=== PATIENT | female | born 1960 | race Caucasian/White ===

== ENCOUNTER → 2017-01-23 | Outpatient (CLI) | payer BC ==
--- NOTE | 2017-01-24 10:37 | MM ---
Reason for exam: screening (asymptomatic). Last mammogram was performed 1 year and 1 month ago. History: Patient is postmenopausal. Took estrogen for 2 years beginning at age 44. Physical Findings: A clinical breast exam by your physician is recommended on an annual basis and results should be correlated with mammographic findings. MG Screening Mammo w CAD Bilateral CC and MLO view(s) were taken. Prior study comparison: December 14, 2015, bilateral MG screening mammo w CAD. March 03, 2014, bilateral MG screening mammo w CAD. There are scattered fibroglandular densities. No significant changes when compared with prior studies. ASSESSMENT: Negative, BI-RAD 1 RECOMMENDATION: Routine screening mammogram of both breasts in 1 year.
== END | disposition home or self-care (01) ==
LOC: RADMAMWWP 13:54
PROVIDERS: ATTEND Family Medicine
DX: Z12.31 Encounter for screening mammogram for malignant neoplasm of breast (principal)

== ENCOUNTER → 2017-04-18 | Outpatient (CLI) | payer BC ==
--- NOTE | 2017-04-18 13:30 | US ---
EXAMINATION TYPE: US thyroid st tissue head/neck DATE OF EXAM: 04/18/2017 COMPARISON: NONE CLINICAL HISTORY: I88.9 Nonspecific lymphadenitis, unspecified. GLAND SIZE: Right Lobe: 5.2 x 1.5 x 1.6 cm Overall Parenchyma: heterogenous Left Lobe: 4.3 x 1.2 x 1.6 cm Overall Parenchyma: heterogeneous Isthmus Thickness: 0.2 cm NODULES RIGHT: # of nodules measured on right: 1 1. 1.0 X 0.6 x 0.9 cm isoechoic solid nodule at the mid pole with poorly defined margins; . This n odule is wider than tall and shows no intranodular vascularity. Prior size: no prior LEFT: # of nodules measured on left: 1 1. 0.7 X 0.4 x 1.1 cm isoechoic nodule at the lower pole with poorly defined margins; . This nodu le is wider than tall and shows no intranodular vascularity. Prior size: no prior ISTHMUS: # of nodules measured in the isthmus: 0 Bilateral neck scanned, no evidence of lymphadenopathy. Rt neck swelling off and on, no mass seen IMPRESSION: Nonspecific thyroid nodules as discussed.
== END | disposition home or self-care (01) ==
LOC: RADUSWWP 12:54
PROVIDERS: ATTEND Family Medicine
DX: E04.2 Nontoxic multinodular goiter (principal)
CPT/HCPCS: 76536

== ENCOUNTER → 2018-04-25 | Outpatient (CLI) | payer BC ==
--- NOTE | 2018-05-01 11:38 | MM ---
Reason for exam: screening (asymptomatic). Last mammogram was performed 1 year and 3 months ago. History: Patient is postmenopausal. Took estrogen for 2 years beginning at age 44. Physical Findings: A clinical breast exam by your physician is recommended on an annual basis and results should be correlated with mammographic findings. MG 3D Screening Mammo W/Cad Bilateral CC and MLO view(s) were taken. Prior study comparison: January 23, 2017, bilateral MG screening mammo w CAD. December 14, 2015, bilateral MG screening mammo w CAD. There are scattered fibroglandular densities. No significant changes when compared with prior studies. ASSESSMENT: Negative, BI-RAD 1 RECOMMENDATION: Routine screening mammogram of both breasts in 1 year.
== END | disposition home or self-care (01) ==
LOC: RADMAMWWP 14:23
PROVIDERS: ATTEND Family Medicine
DX: Z12.31 Encounter for screening mammogram for malignant neoplasm of breast (principal)
CPT/HCPCS: 77063; 77067

== ENCOUNTER → 2019-05-04 | Outpatient (CLI) | payer BC ==
--- NOTE | 2019-05-06 10:17 | MM ---
Reason for exam: screening (asymptomatic). Last mammogram was performed 1 year ago. History: Patient is postmenopausal. Took estrogen for 2 years beginning at age 44. Physical Findings: A clinical breast exam by your physician is recommended on an annual basis and results should be correlated with mammographic findings. MG 3D Screening Mammo W/Cad Bilateral CC and MLO view(s) were taken. Prior study comparison: April 25, 2018, bilateral MG 3d screening mammo w/cad. January 23, 2017, bilateral MG screening mammo w CAD. There are scattered fibroglandular densities. No significant changes when compared with prior studies. ASSESSMENT: Benign, BI-RAD 2 RECOMMENDATION: Routine screening mammogram of both breasts in 1 year.
== END | disposition home or self-care (01) ==
LOC: RADMAMWWP 14:34
PROVIDERS: ATTEND Family Medicine
DX: Z12.39 Encounter for other screening for malignant neoplasm of breast (principal)
CPT/HCPCS: 77063; 77067

== ENCOUNTER → 2020-04-14 | Outpatient (CLI) | payer BC ==
--- NOTE | 2020-04-14 10:34 | CT ---
EXAMINATION TYPE: CT abdomen pelvis wo con DATE OF EXAM: 04/14/2020 COMPARISON: HISTORY: flank pain, microscopic hematuria, history of renal stones CT DLP: 1101 mGycm Automated exposure control for dose reduction was used. TECHNIQUE: Helical acquisition of images was performed from the lung bases through the pelvis. FINDINGS: LUNG BASES: No significant abnormality is appreciated. LIVER/GB: Tiny hypodensity involving the dome of the liver too small to characterize and measures les s than 1 cm.. PANCREAS: No significant abnormality is seen. SPLEEN: No significant abnormality is seen. ADRENALS: No significant abnormality is seen. KIDNEYS: No significant abnormality is seen. ADENOPATHY: None visualized. OSSEOUS STRUCTURES: Hypertrophic and degenerative change of the spine.. BOWEL: No significant abnormality is seen. OTHER: Aorta of normal caliber. IMPRESSION: 1. No evidence of renal calculus or hydronephrosis.
== END | disposition home or self-care (01) ==
LOC: RADCTMAIN 09:42
PROVIDERS: ATTEND Family Medicine
DX: R10.9 Unspecified abdominal pain (principal)
CPT/HCPCS: 74176

== ENCOUNTER → 2020-06-24 | Outpatient (CLI) | payer BC ==
--- NOTE | 2020-06-28 08:43 | MM ---
Reason for exam: screening (asymptomatic). Last mammogram was performed 1 year and 2 months ago. History: Took estrogen for 2 years beginning at age 44. Physical Findings: A clinical breast exam by your physician is recommended on an annual basis and results should be correlated with mammographic findings. MG 3D Screening Mammo W/Cad Bilateral CC and MLO view(s) were taken. Prior study comparison: May 04, 2019, bilateral MG 3d screening mammo w/cad. April 25, 2018, bilateral MG 3d screening mammo w/cad. There are scattered fibroglandular densities. No significant changes when compared with prior studies. ASSESSMENT: Negative, BI-RAD 1 RECOMMENDATION: Routine screening mammogram of both breasts in 1 year.
== END ==
LOC: RADMAMWWP 11:56
PROVIDERS: ATTEND Family Medicine
DX: Z12.31 Encounter for screening mammogram for malignant neoplasm of breast (principal)
CPT/HCPCS: 77063; 77067

== ENCOUNTER → 2020-12-27 | Outpatient (CLI) | payer BC ==
--- NOTE | 2020-12-27 17:59 | XR ---
Cervical spine HISTORY: M 47.22 6 views of the cervical spine, no comparisons There is multilevel spondylosis. Loss of disc height is present greatest at C4-5, C5-6 and C6-7. Ther e is near anatomic alignment. Cervical vertebral bodies show preserved height and alignment. There is multilevel foraminal encroachment on oblique views to exclude C3-4, C4-5, C5-6 and C6-7 bilaterally. Facet arthropathy changes are present. IMPRESSION: Degenerative disc disease, facet arthropathy, multilevel foraminal encroachment.
== END | disposition home or self-care (01) ==
LOC: RADXRMAIN 16:57
PROVIDERS: ATTEND Family Medicine
DX: M47.22 Other spondylosis with radiculopathy, cervical region (principal); M50.30 Other cervical disc degeneration, unspecified cervical region
CPT/HCPCS: 72050

== ENCOUNTER → 2021-01-22 | Outpatient (CLI) | payer BC ==
--- NOTE | 2021-01-22 13:41 | MR ---
EXAMINATION TYPE: MR cervical spine wo con DATE OF EXAM: 01/22/2021 COMPARISON: None HISTORY: Chronic neck pain and stiffness. TECHNIQUE: Multiplanar, multisequence images of the cervical spine were acquired without contrast. Findings: Exam is limited due to the patient's body habitus. The craniovertebral junction relationships and prevertebral soft tissues are normal. The cervical vertebral segments are normal in height and alignment and there is no fracture or sublux ation. There is moderate degenerative disease at the C4-5, C5-6 and C6-7 levels where there is moderate disc space narrowing, posterior disc bulge and spondylosis. There is no cervical disc herniation. Secondary to posterior spondylosis, there is mild spinal stenosis at the C3-4-5 level, moderate spina l stenosis at the C5-6 level and moderate to severe spinal stenosis at the C6-7 level. There is multilevel neural foraminal encroachment as follows; severe at the C3-4 level on the right s evere at the C5-6 level bilaterally and mild at the C6-7 level bilaterally. The cervical cord is normal in size and signal intensity. The paraspinal soft tissues are unremarkabl e. IMPRESSION: 1. Moderate degenerative disc the C4-5, C5-6 and C6-7 levels. 2. Multilevel cervical stenosis as described above. 3. No cervical disc herniation. 4. Multilevel neural foraminal stenosis as described above.
== END | disposition home or self-care (01) ==
LOC: RADMRIMAIN 12:58
PROVIDERS: ATTEND Family Medicine
DX: M47.22 Other spondylosis with radiculopathy, cervical region (principal); M50.30 Other cervical disc degeneration, unspecified cervical region; M48.02 Spinal stenosis, cervical region
CPT/HCPCS: 72141

== ENCOUNTER → 2021-08-21 | Outpatient (CLI) | payer BC ==
--- NOTE | 2021-08-24 11:58 | MM ---
Reason for exam: screening (asymptomatic). Last mammogram was performed 1 year and 2 months ago. History: Took estrogen for 2 years beginning at age 44. Physical Findings: A clinical breast exam by your physician is recommended on an annual basis and results should be correlated with mammographic findings. MG 3D Screening Mammo W/Cad Bilateral CC and MLO view(s) were taken. Prior study comparison: June 24, 2020, bilateral MG 3d screening mammo w/cad. May 04, 2019, bilateral MG 3d screening mammo w/cad. There are scattered fibroglandular densities. There is chronic nodularity in the right breast, stable. There is no discrete abnormality. ASSESSMENT: Negative, BI-RAD 1 RECOMMENDATION: Routine screening mammogram of both breasts in 1 year.
== END | disposition home or self-care (01) ==
LOC: RADMAMWWP 16:09
PROVIDERS: ATTEND Family Medicine
DX: Z12.31 Encounter for screening mammogram for malignant neoplasm of breast (principal)
CPT/HCPCS: 77063; 77067

== ENCOUNTER → 2022-04-07 | Outpatient (CLI) | payer BC ==
[2022-04-07 11:33] LABS: Basophils # (A) 0.06 X 10*3/uL (0.00-0.10); Basophils % (A) 0.7 %; Eosinophils # (A) 0.22 X 10*3/uL (0.04-0.35); Eosinophils % (A) 2.6 %; HCT 43.5 % (37.2-46.3); HGB 14.2 g/dL (12.0-15.0); Immature Grans, Automated 0.4 %; Lymphocytes # (A) 2.06 X 10*3/uL (0.90-5.00); Lymphocytes % (A) 24.6 %; MCH 30.7 pg (27.0-32.0); MCHC 32.6 g/dL (32.0-37.0); Mean Platelet Volume 10.4 fL (9.5-12.2); Monocytes # (A) 0.65 X 10*3/uL (0.20-1.00); Monocytes % (A) 7.8 %; NRBC Per 100 WBC 0 /100 WBCS (0.0-0.0); Neutrophils # (A) 5.35 X 10*3/uL (1.80-7.70); Neutrophils % (A) 63.9 %; Platelet Count 181 X 10*3/uL (140-440); RBC 4.63 X 10*6/uL (4.10-5.20); RDW 12.6 % (11.5-14.5); WBC 8.37 X 10*3/uL (4.50-10.00)
[2022-04-07 12:19] LABS: ALT 11 U/L (8-44); AST 14 U/L (13-35); African American GFR (CKD) 79.1 (60.0-200.0); Albumin 4.3 g/dL (3.8-4.9); Albumin/Globulin Ratio 1.99 (1.60-3.17); Alkaline Phosphatase 65 U/L (41-126); Blood Urea Nitrogen 22.7 mg/dL (9.0-27.0); Calcium 9.2 mg/dL (8.7-10.3); Carbon Dioxide 27.4 mmol/L (20.0-27.5); Chloride 105 mmol/L (96-109); Chol/HDL Ratio 2.95 Ratio; Globulin 2.1 g/dL (1.6-3.3); Glucose 110 mg/dL (70-110); LDL Cholesterol,Calculated 69.8 mg/dL (0.0-131.0); Non-African American GFR(CKD) 68.2 (60.0-200.0); Sodium 145 mmol/L (135-145); Total Protein 6.4 g/dL (6.2-8.2)
== END | disposition home or self-care (01) ==
LOC: LABWHC1 08:07
PROVIDERS: ATTEND Family Medicine
DX: E78.2 Mixed hyperlipidemia (principal); E55.9 Vitamin D deficiency, unspecified
CPT/HCPCS: 36415; 80053; 80061; 82306; 84443; 85025

== ENCOUNTER → 2022-09-14 | Outpatient (CLI) | payer BC ==
--- NOTE | 2022-09-17 19:08 | MM ---
Reason for Exam: Screening (asymptomatic). Last mammogram was performed 1 year(s) and 1 month(s) ago. Patient History: Menarche at age 13. First Full-Term at age 26. Left ovary removed at age 44. Right ovary removed at age 34. Hysterectomy at age 34. Estrogen for 2 years from age 44 until age 46. Risk Values: Ivania 5 year model risk: 1.4%. NCI Lifetime model risk: 7.2%. Prior Study Comparison: 05/04/2019 Bilateral Screening Mammogram, [facility]. 06/24/2020 Bilateral Screening Mammogram, [facility]. 08/21/2021 Bilateral Screening Mammogram, [facility]. Tissue Density: There are scattered fibroglandular densities. Findings: Analyzed By CAD. There is no suspicious group of microcalcifications or new suspicious mass in either breast. Overall Assessment: Negative, BI-RAD 1 Management: Screening Mammogram of both breasts in 1 year. . Patient should continue monthly self-breast exams. A clinical breast exam by your physician is recommended on an annual basis. This exam should not preclude additional follow-up of suspicious palpable abnormalities. Note on Ivania scores and lifetime risk: 1. A Ivania score greater than 3% is considered moderate risk. If this is the case, consider specialist referral to assess eligibility for a risk reducing agent. 2. If overall lifetime risk for the development of breast cancer is 20% or higher, the patient may qualify for future screening with alternating mammogram and breast MRI. Electronically signed and approved by: Matias Davis M.D. Radiologist
== END | disposition home or self-care (01) ==
LOC: RADMAMWWP 14:49
PROVIDERS: ATTEND Family Medicine
DX: Z12.31 Encounter for screening mammogram for malignant neoplasm of breast (principal)
CPT/HCPCS: 77063; 77067

== ENCOUNTER → 2023-08-16 | Outpatient (CLI) | payer BC ==
--- NOTE | 2023-08-16 13:22 | CT ---
EXAMINATION TYPE: CT abdomen wo con DATE OF EXAM: 08/16/2023 COMPARISON: 04/14/2020 HISTORY: 8-year-old female R1 0.9, flank pain TECHNIQUE: Contiguous axial scanning of the abdomen without IV contrast. Coronal and sagittal reconst ructions performed. CT DLP: 680 mGycm Automated exposure control for dose reduction was used. FINDINGS: Heart normal size without pericardial effusion. Lung bases clear without pleural effusion. Liver enlarged at 19.0 cm. Otherwise, noncontrast appearance of the liver, gallbladder, adrenal gland s, left kidney, spleen, and atrophic pancreas show no gross abnormality. Redemonstrated 1.7 cm cortical cyst anterior right kidney. No hydronephrosis seen on either side. Scattered prominent mesenteric lymph nodes measuring up to 1 cm suggesting chronic reactive/post infl ammatory etiology. Some prominent fluid-filled small bowel loops in the mid and left side of the abdomen. No dilated sma ll bowel, free fluid, or free air. Mild to moderate scattered stool. No pericolic inflammatory change. The pelvis is not imaged. Bones: Moderate degenerative disc disease and endplate spondylosis throughout along with scattered hy pertrophic facet arthropathy. IMPRESSION: 1. HEPATOMEGALY AT 19.0 CM. 2. NO NEPHROLITHIASIS OR HYDRONEPHROSIS. 3. SOME PROMINENT FLUID-FILLED SMALL BOWEL LOOPS IN THE MID AND LEFT SIDE OF THE ABDOMEN MAY BE TRANS IENT OR COULD REPRESENT A MILD ENTERITIS.
== END | disposition home or self-care (01) ==
LOC: RADCTMAIN 12:46
PROVIDERS: ATTEND Family Medicine
DX: K31.89 Other diseases of stomach and duodenum (principal); R16.0 Hepatomegaly, not elsewhere classified
CPT/HCPCS: 74150

== ENCOUNTER → 2023-09-25 | Outpatient (CLI) | payer BC ==
--- NOTE | 2023-09-26 12:59 | BD ---
EXAMINATION TYPE: Axial Bone Density DATE OF EXAM: 09/25/2023 CLINICAL HISTORY: 63 years old Female. ICD-10 CODE: Z78.0 ASYMPOTMATIC MENOPAUSAL STATE Height: 5 ft 1 1/4 in Weight: 229 FRAX RISK QUESTIONS: Alcohol (3 or more units per day): no Family History (Parent hip fracture): no Glucocorticoids (More than 3mos): no (Ex: prednisone, prednisolone, methylprednisolone, dexamethasone, and hydrocortisone). History of Fracture in Adulthood: yes Secondary Osteoporosis: 1. Type 1 Diabetes: no 2. Hyperthyroidism: no 3. Menopause before 45: yes 4. Malnutrition: no 5. Chronic liver disease: no Rheumatoid Arthritis: no Current Tobacco Use: no RISK FACTORS HISTORY OF: Surgery to Spine/Hip(right/left)/Wrist (right/left): arlen carpal tunnel/ c spine surg When: wrist 90's/ cspine 2021 MEDICATIONS: Thyroid Medications: none Osteoporosis Medications: none EXAM MEASUREMENTS: Bone mineral densitometry was performed using the [employer] System. Bone mineral density as measured about the Lumbar spine is: ----- L1-L4(G/cm2): 1.389 T Score Values are as follows: ----- L1: 1.1 ----- L2: 1.9 ----- L3: 2.5 ----- L4: 1.4 ----- L1-L4: 1.7 Z Score Values are as follows: ----- L1: 1.3 ----- L2: 2.0 ----- L3: 2.6 ----- L4: 1.5 ----- L1-L4: 1.9 Bone mineral density has: decreased -4.2 % since study of: 2005 Bone mineral density about the R hip (g/cm2): 0.920 Bone mineral density about the L hip (g/cm2): 1.039 T Score values are as follows: -----R Neck: -0.8 -----L Neck: 0.0 -----R Total: 0.3 -----L Total: 0.9 Z Score values are as follows: -----R Neck: -0.3 -----L Neck: 0.5 -----R Total: 0.5 -----L Total: 1.0 Bone mineral density has: decreased -10.4 % since study of: 2005 FRAX%s: The graph provided illustrates a 6.2 % chance for a major osteoporotic fx and a 0.3 % chance for the hips probability for fx in 10 years time. IMPRESSION: Normal (Values between +1 and -1 indicate normal bone mass). Consider repeating this study in 5 year s or sooner if there is some new clinical indication. NOTE: T-SCORE=SD OF THE YOUNG ADULT MEAN.
--- NOTE | 2023-09-26 20:08 | MM ---
Reason for Exam: Screening (asymptomatic). Last screening mammogram was performed 12 month(s) ago. Patient History: Menarche at age 13. First Full-Term at age 26. Left ovary removed at age 44. Right ovary removed at age 34. Hysterectomy at age 34. Patient has history of breast feeding. Estrogen for 2 years from age 44 until age 46. Risk Values: Ivania 5 year model risk: 1.5%. NCI Lifetime model risk: 7.0%. Prior Study Comparison: 06/24/2020 Bilateral Screening Mammogram, [facility]. 08/21/2021 Bilateral Screening Mammogram, [facility]. 09/14/2022 Bilateral MG 3D screening mammo w/cad, [facility]. Tissue Density: There are scattered areas of fibroglandular density. Findings: Analyzed By CAD. Chronic nodularity medial right breast. There is no suspicious group of microcalcifications or new suspicious mass in either breast. Overall Assessment: Benign, BI-RAD 2 Management: Screening Mammogram of both breasts in 1 year. . Patient should continue monthly self-breast exams. A clinical breast exam by your physician is recommended on an annual basis. This exam should not preclude additional follow-up of suspicious palpable abnormalities. Note on Ivania scores and lifetime risk: 1. A Ivania score greater than 3% is considered moderate risk. If this is the case, consider specialist referral to assess eligibility for a risk reducing agent. 2. If overall lifetime risk for the development of breast cancer is 20% or higher, the patient may qualify for future screening with alternating mammogram and breast MRI. Electronically signed and approved by: Matias Davis M.D. Radiologist
== END | disposition home or self-care (01) ==
LOC: RADBDWWP 13:53
PROVIDERS: ATTEND Family Medicine
DX: Z12.31 Encounter for screening mammogram for malignant neoplasm of breast (principal); Z78.0 Asymptomatic menopausal state
CPT/HCPCS: 77063; 77067; 77080

== ENCOUNTER → 2023-11-20 | Outpatient (CLI) | payer BC ==
--- NOTE | 2023-11-20 17:48 | CA ---
Transthoracic Echo Report Name: Anitra Gutierrez Age: 63 Gender: F : 1960 Exam Date: 11/20/2023 14:16 Exam Location: [facility] Ht (in): 61 Wt (lb): 233 Ordering Physician: Pavithra Sin MD Attending/Referring Phys: Tester [employer] Eden Jules RDCS Procedure CPT: Indications: R06.09 Other forms of dyspnea Cardiac Hx: Technical Quality: Fair Contrast 1: Total Dose (mL): Contrast 2: Total Dose (mL): MEASUREMENTS (Male / Female) Normal Values 2D ECHO LV Diastolic Diameter PLAX 4.0 cm 4.2 - 5.9 / 3.9 - 5.3 cm LV Systolic Diameter PLAX 2.4 cm IVS Diastolic Thickness 1.1 cm 0.6 - 1.0 / 0.6 - 0.9 cm LVPW Diastolic Thickness 1.4 cm 0.6 - 1.0 / 0.6 - 0.9 cm LV Relative Wall Thickness 0.6 RV Internal Dim ED PLAX 3.3 cm LA Volume 33.4 cm??? 18 - 58 / 22 - 52 cm??? LA Volume Index 15.2 cm???/m??? 16 - 28 cm???/m??? M-MODE Aortic Root Diameter MM 2.9 cm LA Systolic Diameter MM 5.2 cm LA Ao Ratio MM 1.8 AV Cusp Separation MM 1.8 cm DOPPLER AV Peak Velocity 116.0 cm/s AV Peak Gradient 5.4 mmHg AV Mean Velocity 81.6 cm/s AV Mean Gradient 3.0 mmHg AV Velocity Time Integral 22.0 cm LVOT Peak Velocity 118.8 cm/s LVOT Peak Gradient 5.6 mmHg LVOT Velocity Time Integral 20.4 cm MV Area PHT 3.6 cm??? Mitral E Point Velocity 65.7 cm/s Mitral A Point Velocity 105.8 cm/s Mitral E to A Ratio 0.6 MV Deceleration Time 213.6 ms MV E' Velocity 7.4 cm/s Mitral E to MV E' Ratio 8.9 TR Peak Velocity 240.7 cm/s TR Peak Gradient 23.2 mmHg Right Ventricular Systolic Press 26.2 mmHg FINDINGS Left Ventricle Moderately increased left ventricular wall thickness. Left ventricular cavity size normal. Normal left ventricular systolic function with no obvious regional wall motion abnormalities. Left ventricular ejection fraction is estimated at 55-60 %. Right Ventricle Normal right ventricular size and function. Right ventricular systolic pressure within normal limits. Right Atrium Normal right atrial size. Left Atrium Normal left atrial size. Mitral Valve Structurally normal mitral valve. Mitral valve thickened. Mild mitral annular calcification. Aortic Valve No aortic valve stenosis or regurgitation. Tricuspid Valve Structurally normal tricuspid valve. Mild tricuspid regurgitation. Pulmonic Valve Structurally normal pulmonic valve. Trace pulmonic regurgitation. Pericardium No pericardial effusion. Aorta Normal size aortic root and proximal ascending aorta. CONCLUSIONS Normal LV systolic function Mitral annular calcification without significant stenosis or regurgitation Previewed by: Dr. Yaron Shanks MD (Electronically Signed) Final Date: 20 November 2023 17:48
== END | disposition home or self-care (01) ==
LOC: RADECHMAIN 13:58
PROVIDERS: ATTEND Family Medicine
DX: I34.81 Nonrheumatic mitral (valve) annulus calcification (principal); R06.09 Other forms of dyspnea
CPT/HCPCS: 93306

== ENCOUNTER → 2023-12-18 | Outpatient (CLI) | payer BC ==
[~2023-12-18] MED LIST: REGADENOSON 0.4 MG/5 ML SYRINGE IV ONE
--- NOTE | 2024-01-07 14:19 | CA ---
Lexiscan Nuclear Stress Test Report Name: Anitra Gutierrez Exam Date: 12/18/2023 09:58 Exam Location: [facility] Ht (in): 61 Wt (lb): 234 BSA: 2.02 Ordering Phys: [place] GARCIA Referring Phys: RADHA Technologist: Taz Ochoa Age: 63 Gender: F : 1960 Procedure CPT: Indications: ICD-10 Codes: Patient History: Medications: SEE LIST IN FOLDER Meds past 24 hrs: Pretest Chest Pain: STRESS TEST Lexiscan Protocol Exercise Duration (min:sec): 01:[address] Depressions (mm): Angina Score: Estrada Score: Resting HR (bpm): 83 Peak HR (bpm): 99 Resting BP (mmHg): 146 / 89 Peak BP (mmHg): 154 / 76 MPHR: 159 Target HR: 135 % MPHR: 62 METS: 1.0 Total Dose: Peak Dose: Atropine: Double Product: 30272 BP Response: Stress Termination: INFUSION COMPLETE Stress Symptoms: NO SYMPTOMS Stress Summary: ECG ANALYSIS Resting ECG: Sinus rhythm. Normal conduction. No arrhythmias. Normal repolarization. Stress ECG: No ECG changes from baseline with Lexiscan infusion. CONCLUSIONS No ECG evidence of ischemia with Lexiscan infusion. Nuclear test results to follow. Dr. Vimal Sanchez MD (Electronically Signed) Final Date: 18 December 2023 12:22
--- NOTE | 2024-01-15 13:32 | NM ---
Anitra Gutierrez M ID: [id number] : 1960 EXAMINATION TYPE: NM stress lexiscan cardiolite DATE OF EXAM: 12/18/2023 COMPARISON: NONE HISTORY: 63-year-old female on 10.05, shortness of breath, other forms of dyspnea, hypercholesterolem ia, family history of heart disease TECHNIQUE: After the intravenous administration of 9.6 mCi Tc 99m Sestamibi - Cardiolite resting SPE CT images acquired 30 minutes post injection. The patient received 0.4mg Lexiscan, 24.7 mCi Tc 99m Se stamibi - Stress images obtained 60 minutes post injection FINDINGS: Review of stress and rest SPECT images demonstrates a moderate-sized anterior and anterola teral apical wall defect only on rest. This improves on stress images. No distinct perfusion abnormal ity. Gated analysis shows normal wall motion with an estimated left ventricular ejection fraction of 70 %. TID is calculated at 0.85, within normal limits. IMPRESSION: Attenuation artifact along the anterolateral apex, only seen on rest. No suspicious defec t on stress to indicate chronic infarct or inducible ischemia.
== END | disposition home or self-care (01) ==
LOC: RADNMMAIN 08:07
PROVIDERS: ATTEND Family Medicine
DX: R06.09 Other forms of dyspnea (principal)
CPT/HCPCS: 93017; 78452; A9500; J2785

== ENCOUNTER → 2024-10-22 | Outpatient (CLI) | payer BC ==
--- NOTE | 2024-10-22 15:09 | MM ---
Reason for Exam: Screening (asymptomatic). Last mammogram was performed 1 year(s) and 1 month(s) ago. Patient History: Menarche at age 13. First Full-Term at age 26. Left ovary removed at age 44. Right ovary removed at age 34. Hysterectomy at age 34. Patient has history of breast feeding. Estrogen for 2 years from age 44 until age 46. Risk Values: Ivania 5 year model risk: 1.5%. NCI Lifetime model risk: 6.8%. Prior Study Comparison: 08/21/2021 Bilateral Screening Mammogram, [facility]. 09/14/2022 Bilateral MG 3D screening mammo w/cad, [facility]. 09/25/2023 Bilateral MG 3D screening mammo w/cad, [facility]. Tissue Density: The breasts are almost entirely fatty. Findings: Analyzed By CAD. Right breast: There is no suspicious group of microcalcifications or new suspicious mass. Left breast: There is no suspicious group of microcalcifications or new suspicious mass. Overall Assessment: Negative, BI-RAD 1 Management: Screening Mammogram of both breasts in [address] [facility] will attempt to contact patient to return for supplemental views and ultrasound if indicated. Patient should continue monthly self-breast exams. A clinical breast exam by your physician is recommended on an annual basis. This exam should not preclude additional follow-up of suspicious palpable abnormalities. Note on Ivania scores and lifetime risk: 1. A Ivania score greater than 3% is considered moderate risk. If this is the case, consider specialist referral to assess eligibility for a risk reducing agent. 2. If overall lifetime risk for the development of breast cancer is 20% or higher, the patient may qualify for future screening with alternating mammogram and breast MRI. [facility], , 10/22/2024 3:06 PM. Electronically signed and approved by: Venkata Phillips DO
== END | disposition home or self-care (01) ==
LOC: RADMAMWWP 14:32
PROVIDERS: ATTEND Family Medicine
DX: Z12.31 Encounter for screening mammogram for malignant neoplasm of breast (principal); R92.313 Mammographic fatty tissue density, bilateral breasts
CPT/HCPCS: 77063; 77067